=== PATIENT | female | born 1960 | race Caucasian/White ===

== ENCOUNTER 2022-09-15 09:34 | Day surgery (SDC) | payer BC, MEDICAID ==
[2022-09-15] MEDS ORDERED: Sodium Chloride 0.9% 10 ML Syringe FLUSH PRN (10:00)
[2022-09-15] MEDS ORDERED: Midazolam 1 MG/ML 2 ML SDV ONE (10:07)
[2022-09-15] MEDS ORDERED: Lidocaine 2% 5 ML SDV ONE (10:08)
[2022-09-15] MEDS ORDERED: Propofol 200 MG/20 ML SDV ONE ×2 (10:08→11:05)
[2022-09-15] MEDS ORDERED: Glycopyrrolate 0.2 MG/ML SDV ONE (10:08)
[2022-09-15] MEDS: Lactated Ringers 1,000 ML IV SCH (10:13)
== END 2022-09-15 13:04 | disposition home or self-care (01) ==
LOC: KA.SDS 09:34
PROVIDERS: ATTEND Family Medicine
DX: Z12.11 Encounter for screening for malignant neoplasm of colon (principal); K29.50 Unspecified chronic gastritis without bleeding; K64.4 Residual hemorrhoidal skin tags; F33.40 Major depressive disorder, recurrent, in remission, unspecified; E03.9 Hypothyroidism, unspecified; K22.70 Barrett's esophagus without dysplasia; R91.1 Solitary pulmonary nodule; K43.9 Ventral hernia without obstruction or gangrene; F41.9 Anxiety disorder, unspecified; Z91.199 Patient's noncompliance with other medical treatment and regimen due to unspecified reason; Z79.890 Hormone replacement therapy; Z79.899 Other long term (current) drug therapy; Z79.1 Long term (current) use of non-steroidal anti-inflammatories (NSAID); Z88.0 Allergy status to penicillin; Z88.1 Allergy status to other antibiotic agents
CPT/HCPCS: J2250; J2704; J3490; J7120

== ENCOUNTER 2024-11-10 10:03 | Emergency (ER) | payer BC, MEDICAID ==
[2024-11-10] MEDS ORDERED: Sodium Chloride 0.9% 10 ML Syringe FLUSH PRN (10:19)
[2024-11-10 10:33] LABS: BASOPHILS ABSOLUTE AUTO 0.04 10^3/uL (0.00-0.10); BASOPHILS PERCENT AUTO 0.6 % (0.0-1.0); EOSINOPHILS ABSOLUTE AUTO 0.29 10^3/uL (0.10-0.30); EOSINOPHILS PERCENT AUTO 4.3 % (1.0-3.0); IMMATURE GRAN ABSOLUTE AUTO 0.02 10^3/uL (0.00-0.04); IMMATURE GRAN PERCENT AUTO 0.3 % (0.0-0.4); LYMPHOCYTES ABSOLUTE AUTO 1.76 10^3/uL (1.00-4.00); LYMPHOCYTES PERCENT AUTO 25.8 % (20.0-40.0); MEAN PLATELET VOLUME 9.1 fL (7.4-10.4); MONOCYTES ABSOLUTE AUTO 0.66 10^3/uL (0.10-0.80); MONOCYTES PERCENT AUTO 9.7 % (2.0-8.0); NEUTROPHILS ABSOLUTE AUTO 4.05 10^3/uL (2.50-7.00); NEUTROPHILS PERCENT AUTO 59.3 % (50.0-70.0); PLATELET COUNT,PLT 233 10^3/uL (150-400); RED BLOOD CELL COUNT 4.59 10^6/uL (3.80-5.50); RED CELL DISTRIBUTION WIDTH 13.9 % (11.5-14.5); WHITE BLOOD CELL COUNT,WBC 6.82 10^3/uL (5.00-10.00)
[2024-11-10 10:49] LABS: ALANINE AMINOTRANSFERASE,ALT 16.0 U/L (14-63); ASPARTATE AMNIOTRANSFERASE,AST 17.0 U/L (15-37); BILIRUBIN TOTAL 0.5 mg/dL (0.2-1.0); BLOOD UREA NITROGEN,BUN 12.0 mg/dL (7-18); CARBON DIOXIDE,CO2 25.2 mmol/L (21.0-32.0); CHLORIDE,CL 104.0 mmol/L (98-107); CREATININE 0.95 mg/dL (0.51-1.17); EST CRCL DRUG DOSING (CG) 51.91 mL/min; GLUCOSE RANDOM 144.0 mg/dL (70-140); POTASSIUM,K 4.2 mmol/L (3.5-5.1); PROTEIN TOTAL,TP 6.7 g/dL (6.4-8.2); SODIUM,NA 140.0 mmol/L (136-145)
[2024-11-10 10:52] LABS: ESTIMATED GFR 68.0 mL/min (>=60)
[2024-11-10 11:31] LABS: APPEARANCE,URINE CLEAR (CLEAR); GLUCOSE,URINE NEGATIVE (NEGATIVE); OCCULT BLOOD,URINE NEGATIVE (NEGATIVE)
[2024-11-10] MEDS: Ondansetron 4 MG/2 ML SDV IVPUSH ONE (11:36)
[2024-11-10] MEDS: Ketorolac 30 MG/ML SDV IVPUSH ONE (11:36)
[2024-11-10 11:39] LABS: EPITHELIAL CELLS,URINE RARE /LPF
[2024-11-10] MEDS: Iopamidol 755 Mg/ML 100 ML Bottle IV ONE (12:21)
== END 2024-11-10 13:19 | disposition home or self-care (01) ==
LOC: KA.ED 10:05
DX: R10.84 Generalized abdominal pain (principal); E03.9 Hypothyroidism, unspecified; E66.9 Obesity, unspecified; K21.9 Gastro-esophageal reflux disease without esophagitis; Z79.899 Other long term (current) drug therapy; Z79.890 Hormone replacement therapy; Z88.8 Allergy status to other drugs, medicaments and biological substances; Z88.0 Allergy status to penicillin; Z90.49 Acquired absence of other specified parts of digestive tract; Z68.32 Body mass index [BMI] 32.0-32.9, adult
CPT/HCPCS: 74021; 74177; 80053; 81001; 85025; 96374; 96375; 99284-25; J1885; J2405; Q9967

== ENCOUNTER 2024-11-13 09:48 | Emergency (ER) | payer MEDICAID ==
[2024-11-13 10:25] LABS: BASOPHILS ABSOLUTE AUTO 0.03 10^3/uL (0.00-0.10); BASOPHILS PERCENT AUTO 0.6 % (0.0-1.0); EOSINOPHILS ABSOLUTE AUTO 0.29 10^3/uL (0.10-0.30); EOSINOPHILS PERCENT AUTO 5.4 % (1.0-3.0); IMMATURE GRAN ABSOLUTE AUTO 0.02 10^3/uL (0.00-0.04); IMMATURE GRAN PERCENT AUTO 0.4 % (0.0-0.4); LYMPHOCYTES ABSOLUTE AUTO 1.56 10^3/uL (1.00-4.00); LYMPHOCYTES PERCENT AUTO 29.2 % (20.0-40.0); MEAN PLATELET VOLUME 9.3 fL (7.4-10.4); MONOCYTES ABSOLUTE AUTO 0.51 10^3/uL (0.10-0.80); MONOCYTES PERCENT AUTO 9.6 % (2.0-8.0); NEUTROPHILS ABSOLUTE AUTO 2.93 10^3/uL (2.50-7.00); NEUTROPHILS PERCENT AUTO 54.8 % (50.0-70.0); PLATELET COUNT,PLT 244 10^3/uL (150-400); RED BLOOD CELL COUNT 4.74 10^6/uL (3.80-5.50); RED CELL DISTRIBUTION WIDTH 13.8 % (11.5-14.5); WHITE BLOOD CELL COUNT,WBC 5.34 10^3/uL (5.00-10.00)
[2024-11-13 10:40] LABS: ALANINE AMINOTRANSFERASE,ALT 17.0 U/L (14-63); ASPARTATE AMNIOTRANSFERASE,AST 21.0 U/L (15-37); BILIRUBIN TOTAL 0.7 mg/dL (0.2-1.0); BLOOD UREA NITROGEN,BUN 11.0 mg/dL (7-18); CARBON DIOXIDE,CO2 25.9 mmol/L (21.0-32.0); CHLORIDE,CL 104.0 mmol/L (98-107); CREATININE 0.91 mg/dL (0.51-1.17); EST CRCL DRUG DOSING (CG) 53.02 mL/min; GLUCOSE RANDOM 141.0 mg/dL (70-140); POTASSIUM,K 4.2 mmol/L (3.5-5.1); PROTEIN TOTAL,TP 7.2 g/dL (6.4-8.2); SODIUM,NA 140.0 mmol/L (136-145)
[2024-11-13 10:41] LABS: APPEARANCE,URINE CLEAR (CLEAR); GLUCOSE,URINE NEGATIVE (NEGATIVE); OCCULT BLOOD,URINE NEGATIVE (NEGATIVE)
[2024-11-13 10:42] LABS: EPITHELIAL CELLS,URINE RARE /LPF
[2024-11-13 10:51] LABS: ESTIMATED GFR 71.0 mL/min (>=60)
== END 2024-11-13 11:31 | disposition home or self-care (01) ==
LOC: KA.ED 09:48
DX: K92.1 Melena (principal); K60.2 Anal fissure, unspecified; E78.00 Pure hypercholesterolemia, unspecified; E03.9 Hypothyroidism, unspecified; E66.9 Obesity, unspecified; J45.909 Unspecified asthma, uncomplicated; Z79.899 Other long term (current) drug therapy; Z86.16 Personal history of COVID-19; Z79.890 Hormone replacement therapy; Z79.84 Long term (current) use of oral hypoglycemic drugs; Z88.1 Allergy status to other antibiotic agents; Z88.0 Allergy status to penicillin; Z68.31 Body mass index [BMI] 31.0-31.9, adult
CPT/HCPCS: 36415; 80053; 81001; 82272; 85025; 99284